=== PATIENT | male | born 1945 | race Caucasian/White ===

== ENCOUNTER → 2019-09-25 08:22 | Outpatient (BNVA) | payer OTHER, SELFPAY | PROVIDERS: Family Provider Internal Medicine; PCP Internal Medicine; Referring Provider Internal Medicine; Visit Provider Specialist | DX: G30.9 Alzheimer's disease, unspecified (principal); F02.80 Dementia in other diseases classified elsewhere, unspecified severity, without behavioral disturbance, psychotic disturbance, mood disturbance, and anxiety; Z87.891 Personal history of nicotine dependence | CPT/HCPCS: 96116; 99204 ==

== ENCOUNTER 2019-12-11 07:15 | Day surgery (SDC) | payer OTHER, SELFPAY ==
[2019-12-07 15:47] VITALS: BMI 29.0
[2019-12-11 07:33] VITALS: BP 137/81; PULSE 80; RESP 18; TEMP 36.4; O2SAT 96
[2019-12-11] MEDS: sodium chloride 0.9% 1,000 ML 30 ML IV (07:49)
--- NOTE | 2019-12-11 08:00 | P.ANESASSM_ITS ---
Pre-Anesthetic Assessment Pre-Anesthetic Assessment: Height/Weight: Height 1.68 m Weight 81.647 kg Temp Pulse Resp BP Pulse Ox 97.5 F L 80 18 137/81 96 12/11/19 07:33 12/11/19 07:33 12/11/19 07:33 12/11/19 07:33 12/11/19 07:33 Preop Diagnosis: colon polyps Proposed Procedure: Operation Date: 12/11/19 08:50 Proposed Procedures p Colonoscopy 27935 X86.010(Not Applicable) - Sotero Ann MD Last intake: Intake Last Liquid Date 12/10/19 Last Liquid Time 20:00 Last Solid Date 12/09/19 Last Solid Time 23:59 Social: Social History: Tobacco (quit) and No alcohol Exam: Pre-Anes Outpt Exam: alert, oriented x 3, clear to auscultation b ilaterally and regular rate & rhythm Airway: Submandibular: WNL Cervical ROM: WNL MP: 1 Dentition: Other (teeth ok) History/ROS: No significant history except as noted Pulmonary: Pulmonary: None reported CV/HEM: CV/HEM: None reported : : None reported Hepatic: Hepatic: None reported GI: GI: GERD Metabolic: Metabolic: None reported Musc/skel: Musc/skel: None reported Neuropsych: Neuropsych: Dementia Anesthetic Plan: ASA status: 3 Anesthesia: Anesthesia Evaluation and MAC Risk of > 500 ml blood loss (7ml/kg in children): No Meds/Allergies Current Medications: Current Medications Generic Name Dose Route Start Last Admin Trade Name Freq PRN Reason Stop Dose Admin Sodium Chloride 1,000 mls @ 30 ml s/hr 12/11/19 07:30 12/11/19 07:49 Sodium Chloride 0.9% IV 12/12/19 07:29 30 mls/hr .Q24H EUFEMIA Administration PFSH Anesthesia PFSH: Medical History GERD (gastroesophageal reflux disease) Surgical History H/O inguinal hernia repair History of colonoscopy with polypectomy Status post surgical removal of malignant neoplasm of skin Family History Other CAD (coronary artery disease) Cancer Diabetes Social History Smoking and tobacco status: former smoker Alcohol intake: never History of recent travel: No Data Anesthesia Cardiac Studies: No Data to Display
--- NOTE | 2019-12-11 08:01 | W.PM.OPSFHP ---
Same Day Surgery H&P Indication for Procedure/HPI DATE OF PROCEDURE: December 11, 2019 CHIEF COMPLAINT/INDICATIONFOR SURGICAL PROCEDURE: history of colon polyps PREOP DIAGNOSIS: colon polyps PLANNED PROCEDRUE: Operation Date: 12/11/19 08:50 Proposed Procedures p Colonoscopy 01984 X86.010(Not Applicable) - Sotero Ann MD Medications/Allergies* Home Medications Medication Instructions Recorded Confirmed Type pantoprazole 40 mg tablet,delayed 40 mg PO DAILY 10/17/19 12/07/19 History release Allergies/Adverse Reactions Allergy/AdvReac Type Severity Reaction Status Date / Time No Known Allergies Allergy Verified 12/07/19 15:45 Current Medications: Generic Name Dose Route Start Last Admin Trade Name Freq PRN Reason Stop Dose Admin Sodium Chloride 1,000 mls @ 30 mls/hr 12/11/19 07:30 12/11/19 07:49 Sodium Chloride 0.9% IV 12/12/19 07:29 30 mls/hr .Q24H EUFEMIA Administration Pertinent History/Comorbid Conditions* Medical History (Updated 10/18/19 @ 10:09 by Sotero Ann MD) GERD (gastroesophageal reflux disease) Surgical History (Updated 10/18/19 @ 10:12 by Sotero Ann MD) H/O inguinal hernia repair History of colonoscopy with polypectomy Status post surgical removal of malignant neoplasm of skin Family History (Updated 09/25/19 @ 08:28 by Mily Ramirez LPN) Diabetes CAD (coronary artery disease) Cancer Social History Smoking and tobacco status: former smoker Alcohol intake: never History of recent travel: No Pertinent Exam Findings alert, oriented x 3 and regular rate & rhythm Recommendations Surgery/Procedure today Coding Level of Care Code Acute 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
[2019-12-11 09:09] VITALS: BP 137/81; PULSE 80; RESP 18; TEMP 36.6; O2SAT 96
[2019-12-11 09:25] VITALS: BP 107/57; PULSE 61; RESP 18; O2SAT 95
== END 2019-12-11 09:38 | disposition home or self-care (01) ==
PROVIDERS: PCP Internal Medicine; Visit Provider Surgery
PROC: 0DJD8ZZ Inspection of Lower Intestinal Tract, Via Natural or Artificial Opening Endoscopic (ICD-10-PCS; CPT 45378; principal; 2019-12-11 08:45)
DX: D12.2 Benign neoplasm of ascending colon (principal); D12.0 Benign neoplasm of cecum; D12.4 Benign neoplasm of descending colon; K57.30 Diverticulosis of large intestine without perforation or abscess without bleeding; Z86.010 Personal history of colon polyps; K21.9 Gastro-esophageal reflux disease without esophagitis; F03.90 Unspecified dementia, unspecified severity, without behavioral disturbance, psychotic disturbance, mood disturbance, and anxiety; Z82.49 Family history of ischemic heart disease and other diseases of the circulatory system; Z83.3 Family history of diabetes mellitus
CPT/HCPCS: 12345; 45380; 88305; J2704; J7030

== ENCOUNTER → 2020-05-08 11:14 | Outpatient (BNVA) | payer OTHER, SELFPAY | PROVIDERS: PCP Internal Medicine; Visit Provider Dermatology | DX: D48.9 Neoplasm of uncertain behavior, unspecified (principal) | CPT/HCPCS: 88304 ==

== ENCOUNTER 2022-06-25 09:34 | Outpatient (CLI) | payer OTHER, SELFPAY ==
--- NOTE | 2022-06-25 09:50 | US_ITS ---
WS: [id number] RENAL ULTRASOUND REASON FOR EXAM: STAGE 3A CHRONIC KIDNEY DZ COMPARISON: None available. ORDER DATE: 06/25/2022 10:34 AM TECHNIQUE: Grayscale and Doppler ultrasound examination of the kidneys. FINDINGS: Right kidney: Right kidney measures 10.7 cm x 5.8 cm x 5.0 cm. With right renal cortex 1 cm in width. Left kidney: Left kidney measures 11.1 cm x 5.2 cm x 5 cm. Renal cortex 1.1 cm in width No focal abnormalities. US/US renal BI* [id number] IMPRESSION: Normal renal ultrasound
== END 2022-06-25 09:35 | disposition home or self-care (01) ==
PROVIDERS: PCP Family Medicine; Visit Provider Internal Medicine Nephrology
DX: N18.31 Chronic kidney disease, stage 3a (principal)
CPT/HCPCS: 76770

== ENCOUNTER 2022-10-20 07:23 | Oncology outpatient (recurring) (ONCR) | payer OTHER, SELFPAY ==
[2022-10-20 07:55] LABS: Eosinophils % 0.3 %; Hematocrit 43.1 % (42.0-52.0); Lymphocytes # 1.1 10^3/uL (0.8-4.8); Lymphocytes % 36.8 %; Mean Corpuscular HGB Conc 34.8 g/dL (30.0-36.0); Mean Corpuscular Hemoglobin 31.3 pg (28.0-34.0); Mean Platelet Volume 10.2 fL (7.4-10.4); Monocytes # 0.3 10^3/uL (0.2-0.9); Monocytes % 10.5 %; Neutrophils # 1.42 10^3/uL (1.8-7.7); Neutrophils % 46.8 %; Nucleated Red Blood Cells % 0 %; Platelet Count 125 10^3/cmm (130-400); Red Blood Count 4.79 10^6/uL (4.1-5.3); Red Cell Distribution Width 13.2 % (12.1-15.1)
== END 2022-11-14 23:59 | disposition home or self-care (01) ==
PROVIDERS: PCP Family Medicine; Visit Provider Internal Medicine Hematology & Oncology
DX: D72.819 Decreased white blood cell count, unspecified (principal); D69.6 Thrombocytopenia, unspecified; Z87.891 Personal history of nicotine dependence
CPT/HCPCS: 36415; 85025; 99204

== ENCOUNTER 2022-11-22 11:15 | Oncology outpatient (recurring) (ONCR) | payer OTHER, SELFPAY ==
[2022-11-22 11:57] LABS: Basophils % 0.4 %; Eosinophils # 0.1 10^3/uL (0.0-0.8); Eosinophils % 4.6 %; Hematocrit 41.7 % (42.0-52.0); Hemoglobin 14.2 g/dL (11.7-16.6); Lymphocytes % 42.3 %; Mean Corpuscular HGB Conc 34.1 g/dL (30.0-36.0); Mean Corpuscular Hemoglobin 30.6 pg (28.0-34.0); Mean Corpuscular Volume 89.9 fl (80-94); Mean Platelet Volume 9.9 fL (7.4-10.4); Monocytes # 0.7 10^3/uL (0.2-0.9); Monocytes % 28.6 %; Neutrophils % 22.4 %; Nucleated Red Blood Cells % 0 %; Platelet Count 86 10^3/cmm (130-400); Red Blood Count 4.64 10^6/uL (4.1-5.3); Red Cell Distribution Width 12.6 % (12.1-15.1); White Blood Count 2.4 10^3/uL (4.0-10.0)
[2022-11-22 12:00] LABS: Neutrophils # 0.54 10^3/uL (1.8-7.7)
== END 2022-12-15 23:59 | disposition home or self-care (01) ==
PROVIDERS: PCP Family Medicine; Visit Provider Internal Medicine Hematology & Oncology
DX: D72.819 Decreased white blood cell count, unspecified (principal); D69.6 Thrombocytopenia, unspecified; Z87.891 Personal history of nicotine dependence
CPT/HCPCS: 36415; 85025; 99213

== ENCOUNTER → 2022-11-24 13:36 | Outpatient (BNVA) | payer OTHER, SELFPAY | PROVIDERS: PCP Family Medicine; Visit Provider Dermatology | DX: L57.0 Actinic keratosis (principal); D04.4 Carcinoma in situ of skin of scalp and neck; L82.1 Other seborrheic keratosis; L81.4 Other melanin hyperpigmentation; L57.8 Other skin changes due to chronic exposure to nonionizing radiation | CPT/HCPCS: 11102; 11103; 17000; 17003; 99213 ==

== ENCOUNTER 2022-11-25 07:41 | Outpatient (CLI) | payer OTHER, SELFPAY ==
--- NOTE | 2022-11-25 08:00 | US_ITS ---
WS: [id number] Complete ABDOMINAL ULTRASOUND HISTORY: thrombocytopenia, leukopenia COMPARISON: Renal ultrasound 06/25/2022 Liver: 14.5 cm in length. Normal size liver and echogenicity. No bile duct dilatation or mass. Portal Vein: Normal hepatopetal flow with monophasic waveform. Gallbladder: Normally distended gallbladder with no stones or wall thickening. CBD: 0.2 cm Pancreas: Completely obscured by bowel gas. Right kidney: 10.7 cm x 4.2 x 5.6 cm. Cortex:0.9 cm. Normal size kidney. Mid renal cyst measuring 1.9 cm at its maximum. Left kidney: 11.9 cm x 6.0 cm x 5.3 cm. Cortex: 1.1 cm. Normal size kidney. Small parapelvic cysts with a maximum diameter of 1.8 cm. No solid mass or obstru ction. Spleen: Normal size measuring 11.7 cm in length. Aorta and IVC: Mild atherosclerosis. US/US abdomen complete* [id number] Impression: 1. Normal gallbladder. 2. Completely obscured pancreas. 3. Small bilateral renal cysts. No solid mass. 4. Normal size spleen.
== END 2022-11-25 07:42 | disposition home or self-care (01) ==
LOC: RAD 07:44
PROVIDERS: PCP Family Medicine; Visit Provider Nurse Practitioner Family
DX: N28.1 Cyst of kidney, acquired (principal); D69.6 Thrombocytopenia, unspecified; D72.819 Decreased white blood cell count, unspecified
CPT/HCPCS: 76700

== ENCOUNTER → 2022-12-14 12:50 | Outpatient (BNVA) | payer OTHER, SELFPAY | PROVIDERS: PCP Family Medicine; Visit Provider Dermatology | DX: D04.4 Carcinoma in situ of skin of scalp and neck (principal); L57.0 Actinic keratosis | CPT/HCPCS: 17000; 17003; 17272 ==

== ENCOUNTER 2022-12-22 12:46 | Oncology outpatient (recurring) (ONCR) | payer OTHER, SELFPAY ==
[2022-12-22 14:14] LABS: Basophils % 0.6 %; Eosinophils # 0.2 10^3/uL (0.0-0.8); Eosinophils % 5.2 %; Hematocrit 41.5 % (42.0-52.0); Hemoglobin 14.3 g/dL (11.7-16.6); Lymphocytes # 1.2 10^3/uL (0.8-4.8); Lymphocytes % 39.4 %; Mean Corpuscular HGB Conc 34.5 g/dL (30.0-36.0); Mean Corpuscular Hemoglobin 30.6 pg (28.0-34.0); Mean Corpuscular Volume 88.7 fl (80-94); Mean Platelet Volume 10.3 fL (7.4-10.4); Monocytes # 0.6 10^3/uL (0.2-0.9); Monocytes % 19.4 %; Neutrophils # 1.06 10^3/uL (1.8-7.7); Neutrophils % 34.1 %; Nucleated Red Blood Cells % 0 %; Platelet Count 95 10^3/cmm (130-400); Red Blood Count 4.68 10^6/uL (4.1-5.3); Red Cell Distribution Width 13.5 % (12.1-15.1); White Blood Count 3.1 10^3/uL (4.0-10.0)
[2022-12-22 15:48] LABS: LAB Peripheral Smear Sent for Review
== END 2023-01-14 23:59 | disposition home or self-care (01) ==
PROVIDERS: Nurse Practitioner Family; PCP Family Medicine; Visit Provider Internal Medicine Hematology & Oncology
DX: D72.819 Decreased white blood cell count, unspecified (principal); D69.6 Thrombocytopenia, unspecified; Z87.891 Personal history of nicotine dependence
CPT/HCPCS: 80503; 85025; 99214

== ENCOUNTER → 2023-02-28 15:03 | Outpatient (BNVA) | payer OTHER, SELFPAY | PROVIDERS: PCP Family Medicine; Visit Provider Dermatology | DX: L82.1 Other seborrheic keratosis (principal); L81.4 Other melanin hyperpigmentation; L57.8 Other skin changes due to chronic exposure to nonionizing radiation; D22.5 Melanocytic nevi of trunk; Z08 Encounter for follow-up examination after completed treatment for malignant neoplasm; Z85.828 Personal history of other malignant neoplasm of skin; L57.0 Actinic keratosis | CPT/HCPCS: 17000; 99213 ==

== ENCOUNTER 2023-04-27 09:32 | Oncology outpatient (recurring) (ONCR) | payer OTHER, SELFPAY ==
[2023-04-27 10:07] VITALS: BP 120/72; PULSE 60; RESP 16; TEMP 36.7; O2SAT 95
[2023-04-27 10:18] LABS: Basophils % 0.3 %; Eosinophils # 0.1 10^3/uL (0.0-0.8); Eosinophils % 2.4 %; Hematocrit 39.5 % (37-53); Lymphocytes # 0.9 10^3/uL (0.8-4.8); Lymphocytes % 30.2 %; Mean Corpuscular HGB Conc 34.9 g/dL (30-55); Mean Corpuscular Hemoglobin 31.6 pg (27-33); Mean Corpuscular Volume 90.4 fl (82-101); Mean Platelet Volume 9.9 fL (7.4-10.4); Monocytes # 0.7 10^3/uL (0.2-0.9); Monocytes % 24.4 %; Neutrophils # 1.18 10^3/uL (1.8-7.7); Neutrophils % 40.6 %; Nucleated Red Blood Cells % 0 %; Platelet Count 89 10^3/cmm (157-399); Red Blood Count 4.37 10^6/uL (3.85-5.65); Red Cell Distribution Width 13.8 % (12.1-15.1); White Blood Count 2.91 10^3/uL (3.29-11.43)
== END 2023-05-17 23:59 | disposition home or self-care (01) ==
PROVIDERS: Internal Medicine Medical Oncology; PCP Family Medicine; Visit Provider Internal Medicine Hematology & Oncology
DX: D72.819 Decreased white blood cell count, unspecified (principal); D69.6 Thrombocytopenia, unspecified; Z87.891 Personal history of nicotine dependence
CPT/HCPCS: 36415; 85025; 99213

== ENCOUNTER 2023-08-04 11:26 | Oncology outpatient (recurring) (ONCR) | payer OTHER, SELFPAY ==
[2023-08-04 11:50] VITALS: BP 115/58; PULSE 68; RESP 16; TEMP 36.8; O2SAT 93
[2023-08-04 12:02] LABS: Basophils % 0.3 %; Eosinophils # 0.1 10^3/uL (0.0-0.8); Eosinophils % 4.2 %; Hematocrit 40.6 % (37-53); Lymphocytes % 30.6 %; Mean Corpuscular HGB Conc 34.7 g/dL (30-55); Mean Corpuscular Volume 92.3 fl (82-101); Mean Platelet Volume 10.1 fL (7.4-10.4); Monocytes # 0.9 10^3/uL (0.2-0.9); Monocytes % 28.4 %; Neutrophils # 1.05 10^3/uL (1.8-7.7); Neutrophils % 33.9 %; Nucleated Red Blood Cells % 0 %; Platelet Count 80 10^3/cmm (157-399); Red Cell Distribution Width 14.2 % (12.1-15.1)
== END 2023-08-17 23:59 | disposition home or self-care (01) ==
LOC: ONCMED 11:27
PROVIDERS: Nurse Practitioner Family; PCP Family Medicine; Visit Provider Internal Medicine Hematology & Oncology
DX: D72.819 Decreased white blood cell count, unspecified (principal); D69.6 Thrombocytopenia, unspecified; Z87.891 Personal history of nicotine dependence
CPT/HCPCS: 36415; 85025; 99214

== ENCOUNTER 2023-09-08 08:09 | Outpatient (CLI) | payer OTHER, SELFPAY ==
--- NOTE | 2023-09-08 08:15 | CT_ITS ---
WS: [id number] 1. CT HEAD TECHNIQUE: Noncontrast and contrast-enhanced CT of the head. CLINICAL INFORMATION: DEMENTIA COMPARISON: None. DLP: 2147.[address] scans at [facility] [place] use at least one of these dose optimization techniques: automated e xposure control; mA and/or kV adjustment per patient size (includes targeted exams where dose is matc hed to clinical indication); or iterative reconstruction. FINDINGS: No evidence intracranial hemorrhage or mass effect. Ventricular system and basal cisterns are patent. Cavernous carotid calcification. Mild small vessel changes. Moderate parenchymal volume loss. No ext ra-axial fluid collections. Mastoid air cells are well aerated. Opacification of the RIGHT frontal si nus and RIGHT ethmoid air cells. Opacification of the RIGHT frontoethmoidal recess and partially visu alized RIGHT maxillary sinus. No abnormal intracranial enhancement. IMPRESSION: 1. No evidence intracranial hemorrhage or mass effect. 2. Moderate small vessel changes with moderate parenchymal volume loss. Volume loss slightly progres sed compared to 2019. 3. No abnormal intracranial enhancement. 4. Intracranial vascular calcification. 5. Complete opacification of the RIGHT frontal sinus and RIGHT frontoethmoidal recess extending into the RIGHT ethmoid air cells and partially visualized RIGHT maxillary sinus. 6. Mastoid air cells are well aerated..
[2023-09-08] MEDS: iohexol 350 mg/mL 100 mL Btl IV (08:45)
== END 2023-09-08 08:10 | disposition home or self-care (01) ==
LOC: RAD 08:09
PROVIDERS: PCP Family Medicine; Visit Provider Family Medicine
DX: F03.90 Unspecified dementia, unspecified severity, without behavioral disturbance, psychotic disturbance, mood disturbance, and anxiety (principal)
CPT/HCPCS: 70470; Q9967

== ENCOUNTER 2023-11-22 18:27 | Outpatient (CLI) | payer OTHER, SELFPAY ==
--- NOTE | 2023-11-22 | PETR_ITS ---
PROCEDURE INFORMATION: Exam: PET Brain; Metabolic Evaluation Exam date and time: 11/22/2023 4:48 PM Age: 78 years old Clinical indication: Symptoms: Unspecified dementia LABS AND CLINICAL REPORTS: Glucose: glucose; 94 mg/dl Treatment strategy for malignancy (PET staging): Initial Staging (PI) TECHNIQUE: Imaging protocol: Positron emission tomography (PET) of the brain for metabolic evaluation. Computed tomography, if performed, for localization only. Radiopharmaceutical: dose mCi F18-FDG, IV; 11.78 mCi F-18 FDG (Fluorodeoxyglucose), IV. COMPARISON: CT head wo/w con [id number] 09/08/2023 8:39 AM FINDINGS: Scan quality: Adequate Brain: Mild global brain parenchymal volume loss is similar to the comparison CT scan. On the FDG PET images there is hypometabolism present bilaterally in the parietotemporal region. Uptake in the brain is otherwise unremarkable. Other findings: Opacified right maxillary sinus and ethmoid appears chronic and is unchanged. PET/PET skulltothi INITIAL [id number] IMPRESSION: Hypermetabolism bilaterally in the parietotemporal region suspicious for possible Alzheimer's type dementia in the appropriate clinical setting. Recommend correlation with clinical findings.
== END 2023-11-22 18:28 | disposition home or self-care (01) ==
LOC: RAD 18:27
PROVIDERS: PCP Family Medicine; Visit Provider Student in an Organized Health Care Education/Training Program
DX: F03.90 Unspecified dementia, unspecified severity, without behavioral disturbance, psychotic disturbance, mood disturbance, and anxiety (principal)
CPT/HCPCS: 78815; A9552

== ENCOUNTER → 2024-01-25 13:40 | Outpatient (CLI) | payer OTHER, SELFPAY ==
--- NOTE | 2024-01-25 13:46 | CTR_ITS ---
PROCEDURE INFORMATION: Exam: CT Neck With Contrast Exam date and time: 01/25/2024 2:06 PM Age: 78 years old Clinical indication: Mass, lump, or swelling in neck; Patient HX: Lumps on left side of neck x 2-3 months-bb; Additional info: Lymph node left neck palpable TECHNIQUE: Imaging protocol: Computed tomography of the neck with contrast. Radiation optimization: All CT scans at this facility use at least one of these dose optimization techniques: automated exposure control; mA and/or kV adjustment per patient size (includes targeted exams where dose is matched to clinical indication); or iterative reconstruction. Contrast material: OMNI 350; Contrast volume: 100 ml; Contrast route: INTRAVENOUS (IV); COMPARISON: None RADIATION DOSE METRICS: Total DLP (mGy-cm): 204.52 FINDINGS: Salivary glands: Normal. Glands are normal in size. Oral cavity: Suboptimal evaluation of the oral cavity secondary to streak artifact from dental hardware. Pharynx: Nonspecific soft tissue fullness along the left oropharyngeal wall. Recommend correlation with direct visualization. Bilateral palatine tonsilliths. Prevertebral and retropharyngeal spaces: Unremarkable. Larynx: Unremarkable. Epiglottis is normal. Thyroid: No obvious nodules or cysts. Trachea: Visualized upper trachea is unremarkable. Lungs: Patchy bilateral upper lobe lung opacities. Lymph nodes: Extensive left neck lymphadenopathy the largest lymph node at the level of the thyroid cartilage beneath the left sternocleidomastoid muscle measuring up to 3.1 x 2.0 3.4 cm. Numerous additional enlarged left cervical lymph nodes are noted. Borderline size right neck lymph nodes are identified. Enlarged mediastinal lymph nodes are also noted measuring up to 2.3 cm in the left paratracheal region. Bones/joints: No acute bony abnormality. Soft tissues: Subcutaneous soft tissues are unremarkable. Other findings: Right apical 0.[address]/CT neck w con* [id number] IMPRESSION: 1. Extensive left neck lymphadenopathy. Numerous additional enlarged left cervical lymph nodes are noted. Borderline size right neck lymph nodes. Mediastinal lymphadenopathy. Although these are nonspecific in nature, findings raise concern for underlying malignancy/lymphoma. Recommend clinical correlation and follow up imaging as clinically warranted. 2. Nonspecific soft tissue fullness along the left oropharyngeal wall. Underlying mass lesion cannot be excluded. Recommend correlation with direct visualization.
[2024-01-25] MEDS: iohexol 350 mg/mL 500 mL Btl (per mL) IV (14:17)
== END | disposition home or self-care (01) ==
LOC: RAD 13:39
PROVIDERS: PCP Family Medicine; Visit Provider Family Medicine
DX: L04.0 Acute lymphadenitis of face, head and neck (principal); J39.2 Other diseases of pharynx
CPT/HCPCS: 70491; Q9967

== ENCOUNTER 2024-02-02 12:01 | Oncology outpatient (recurring) (ONCR) | payer OTHER, SELFPAY ==
[2024-02-02 12:42] LABS: Reticulocyte % 1.9 % (0.5-2.0)
[2024-02-02 12:43] LABS: Basophils % 0.3 %; Eosinophils # 0.6 10^3/uL (0.0-0.8); Eosinophils % 8.6 %; Hematocrit 36.1 % (37-53); Lymphocytes # 0.8 10^3/uL (0.8-4.8); Mean Corpuscular HGB Conc 33.8 g/dL (30-55); Mean Corpuscular Hemoglobin 30.7 pg (27-33); Mean Corpuscular Volume 90.9 fl (82-101); Mean Platelet Volume 10.1 fL (7.4-10.4); Monocytes # 0.9 10^3/uL (0.2-0.9); Neutrophils # 4.01 10^3/uL (1.8-7.7); Nucleated Red Blood Cells % 0 %; Platelet Count 84 10^3/cmm (157-399); Red Blood Count 3.97 10^6/uL (3.85-5.65); Red Cell Distribution Width 12.9 % (12.1-15.1); White Blood Count 6.48 10^3/uL (3.29-11.43)
[2024-02-02 13:23] LABS: Alanine Aminotransferase 12 U/L (0-41); Albumin Level 3.6 g/dL (3.5-5.2); Alkaline Phosphatase 122 U/L (40-130); Aspartate Amino Transferase 15 U/L (0-40); Blood Urea Nitrogen 12 mg/dL (8-23); Calcium 8.8 mg/dL (8.5-10.5); Carbon Dioxide 29 mmol/L (22-29); Chloride 97 mmol/L (98-107); Globulin 2.5 g/dL (1.3-4.6); Glucose 103 mg/dL (65-115); Osmolality Calculated 282 mOsm/kg (285-295); Sodium 136 mmol/L (136-145); Thyroid Stimulating Hormone 6.83 uIU/mL (0.27-4.20); Total Bilirubin 0.9 mg/dL (0.15-1.2); Total Protein 6.1 g/dL (6.6-8.7)
== END 2024-02-15 23:59 | disposition home or self-care (01) ==
PROVIDERS: PCP Family Medicine; Visit Provider Internal Medicine
DX: D72.819 Decreased white blood cell count, unspecified (principal); D69.6 Thrombocytopenia, unspecified; Z87.891 Personal history of nicotine dependence; R59.0 Localized enlarged lymph nodes
CPT/HCPCS: 36415; 80053; 84443; 85025; 85045; 99214

== ENCOUNTER 2024-02-21 09:34 | Oncology outpatient (recurring) (ONCR) | payer OTHER, SELFPAY ==
[2024-02-21 11:14] LABS: Basophils % 0.2 %; Eosinophils # 0.3 10^3/uL (0.0-0.8); Eosinophils % 5.2 %; Hematocrit 34.1 % (37-53); Lymphocytes # 1.1 10^3/uL (0.8-4.8); Lymphocytes % 17.9 %; Mean Corpuscular HGB Conc 33.1 g/dL (30-55); Mean Corpuscular Volume 90.5 fl (82-101); Mean Platelet Volume 10.1 fL (7.4-10.4); Monocytes # 0.8 10^3/uL (0.2-0.9); Monocytes % 12.5 %; Neutrophils # 3.69 10^3/uL (1.8-7.7); Neutrophils % 61.7 %; Nucleated Red Blood Cells % 0 %; Platelet Count 62 10^3/cmm (157-399); Red Blood Count 3.77 10^6/uL (3.85-5.65); White Blood Count 5.98 10^3/uL (3.29-11.43)
[2024-02-21 11:21] LABS: Erythrocyte Sedimentation Rate 35 mm/hr (0-10)
[2024-02-21 11:38] LABS: Alanine Aminotransferase 41 U/L (0-41); Albumin Level 2.9 g/dL (3.5-5.2); Alkaline Phosphatase 109 U/L (40-130); Anion Gap 13.5 (5-19); Aspartate Amino Transferase 50 U/L (0-40); Blood Urea Nitrogen 33 mg/dL (8-23); Calcium 8.9 mg/dL (8.5-10.5); Carbon Dioxide 28 mmol/L (22-29); Chloride 104 mmol/L (98-107); Creatinine Clr Calc Pharmacy 24.9509; Globulin 4.8 g/dL (1.3-4.6); Glucose 91 mg/dL (65-115); Lactate Dehydrogenase 276 U/L (135-225); Osmolality Calculated 301 mOsm/kg (285-295); Potassium 3.5 mmol/L (3.5-5.1); Sodium 142 mmol/L (136-145); Total Bilirubin 1.2 mg/dL (0.15-1.2); Total Protein 7.7 g/dL (6.6-8.7)
[2024-02-21 11:42] LABS: LAB Peripheral Smear Sent for Review
[2024-02-21 11:54] LABS: Slide Review Slide Review Perform
== END 2024-03-17 23:55 | disposition home or self-care (01) ==
PROVIDERS: Internal Medicine Medical Oncology; PCP Family Medicine; Visit Provider Internal Medicine
DX: D72.819 Decreased white blood cell count, unspecified (principal); D69.6 Thrombocytopenia, unspecified; R59.0 Localized enlarged lymph nodes; Z87.891 Personal history of nicotine dependence; C91.50 Adult T-cell lymphoma/leukemia (HTLV-1-associated) not having achieved remission
CPT/HCPCS: 36415; 80053; 83615; 85025; 85651; 99215